=== PATIENT | female | born 1965 | race Caucasian/White ===

== ENCOUNTER → 2020-03-17 | Outpatient (CLI) | payer BC | LOC: MC.RAD 16:11 | DX: Z12.31 Encounter for screening mammogram for malignant neoplasm of breast (principal); Z98.82 Breast implant status ==

== ENCOUNTER 2021-03-23 07:28 | Day surgery (SDC) | payer BC ==
[~2021-03-23] VITALS: Ht 152.4 cm; Wt 68.4 kg
[2021-03-23] MEDS ORDERED: EUTHYROX175 MCG PO (07:43)
[2021-03-23] MEDS ORDERED: ESTRACE0.5 MG PO (07:43)
[2021-03-23] MEDS ORDERED: DESYREL 50MG50 MG PO (07:44)
[2021-03-23] MEDS ORDERED: PROVERA5 MG PO (07:44)
[2021-03-23] MEDS ORDERED: CRESTOR40 MG PO (07:45)
[2021-03-23] MEDS ORDERED: FLEXERIL 1010 MG/TAB PO (07:46)
[2021-03-23] MEDS ORDERED: REQUIP 1MG T1 MG/TAB PO (07:46)
[2021-03-23] MEDS ORDERED: MAXALT10 MG PO (07:46)
[2021-03-23 07:59] VITALS: BP 127/70; PULSE 100; TEMP 97.4
[2021-03-23 09:15] VITALS: BP 105/84; PULSE 81; TEMP 97
--- NOTE | 2021-03-23 09:15 | NUR ---
Patient arrived back into [facility] at bedside[address] Dr[address] Lang in to discuss results of colonoscopy. Questions answered. Patient states she would like some Zofran. Zofran given per MAR. Patient requesting pepstewart and anirudh perez. Denies pain at this time.
[2021-03-23 09:30] VITALS: BP 120/64; PULSE 84
--- NOTE | 2021-03-23 09:30 | NUR ---
Patient continues to do well. Denies pain or nausea this time. Tolerated crackers and pepsi. at bedside. Vital signs stable.
[2021-03-23 09:45] VITALS: BP 112/57; PULSE 88
--- NOTE | 2021-03-23 09:45 | NUR ---
Patient continues to do well. Vital signs stable. Denies pain or nausea. Went through discharge instructions with patient and . Questions answered. IV removed from right hand without complications. Patient then got dressed with assistance of . Patient escorted to patient entrance via wheelchair. along side. Patient got into personal vehicle unassisted and left in the care of her , Santino.
== END 2021-03-23 09:55 | disposition home or self-care (01) ==
LOC: SDCO 07:28
DX: Z12.11 Encounter for screening for malignant neoplasm of colon (principal); E03.9 Hypothyroidism, unspecified; E03.4 Atrophy of thyroid (acquired); G43.829 Menstrual migraine, not intractable, without status migrainosus; E78.01 Familial hypercholesterolemia; F51.01 Primary insomnia; E78.5 Hyperlipidemia, unspecified; M19.90 Unspecified osteoarthritis, unspecified site; G25.81 Restless legs syndrome; Z79.899 Other long term (current) drug therapy; Z79.1 Long term (current) use of non-steroidal anti-inflammatories (NSAID); Z90.49 Acquired absence of other specified parts of digestive tract
CPT/HCPCS: J2405; J2704; J7120

== ENCOUNTER → 2021-08-14 | Outpatient (CLI) | payer BC ==
[~2021-08-14] MED LIST: CRESTOR40 MG PO; DESYREL 50MG50 MG PO; ESTRACE0.5 MG PO; EUTHYROX175 MCG PO; FLEXERIL 1010 MG/TAB PO; MAXALT10 MG PO; PROVERA5 MG PO; REQUIP 1MG T1 MG/TAB PO
== END ==
LOC: MC.RAD 09:13
DX: Z12.31 Encounter for screening mammogram for malignant neoplasm of breast (principal)

== ENCOUNTER → 2023-05-09 | Outpatient (CLI) | payer BC | LOC: MC.RAD 07:09 | DX: Z12.31 Encounter for screening mammogram for malignant neoplasm of breast (principal); Z98.82 Breast implant status ==